=== PATIENT | female | born 1995 | race Caucasian/White ===

== ENCOUNTER 2020-05-31 22:46 | Emergency (ER) | payer OTHER ==
[2020-05-31 22:50] VITALS: TEMP 97.8
[2020-05-31] MEDS ORDERED: SODIUM CHLORIDE 0.9% 1,000 ML IV STA (23:06)
[2020-05-31] MEDS ORDERED: SODIUM CHLORIDE 0.9% 500 ML 500 ML IV STA (23:06)
[2020-05-31 23:31] LABS: Appearance,Urine Cloudy (Clear); Bacteria,Urine Rare /hpf; Bilirubin,Urine Negative (Negative); Blood,Urine Negative (Negative); Color,Urine Yellow; Glucose,Urine (UA) Negative (Negative); Ketones,Urine Negative (Negative); Leukocyte Esterase,Urine Negative (Negative); Mucus,Urine Rare /hpf; Nitrite,Urine Negative (Negative); Protein,Urine Trace (Negative); RBC,Urine 3 /hpf (0-5); Specific Gravity,Urine 1.024 (1.001-1.035); Squamous Epithelial Cell,Urine 5 /hpf (0-4); Urobilinogen,Urine <2.0 mg/dL (<2.0); WBC,Urine 1 /hpf (0-5)
[2020-05-31 23:39] LABS: African American GFR (CKD) >90 (>60 ml/min/1.73 sqM); Albumin 4.2 g/dL (3.5-5.0); Anion Gap 4 mmol/L; Calcium 9.2 mg/dL (8.4-10.2); Carbon Dioxide 25 mmol/L (22-30); Chloride 106 mmol/L (98-107); Glucose 101 mg/dL (74-99); Lipase 76 U/L (23-300); Non-African American GFR(CKD) >90 (>60 ml/min/1.73 sqM); Sodium 135 mmol/L (137-145); Total Bilirubin 1.5 mg/dL (0.2-1.3); Total Protein 7.5 g/dL (6.3-8.2)
--- NOTE | 2020-05-31 23:42 | ED ---
Abdominal Pain HPI - General Chief Complaint: Abdominal Pain Stated Complaint: Abd Pain Time Seen by Provider: 05/31/20 22:56 Source: patient, RN notes reviewed Mode of arrival: ambulatory Limitations: no limitations - History of Present Illness Initial Comments: 25-year-old female presents emergency Department chief complaint abdominal pain. Patient states she's had pain for several days. Patient states that she is concerned about possible obstruction. She states that she's had severe constipation and impaction in the past. Patient states that she's been taking some laxatives states that she's had loose stools but no large amount of stool or any formed stool. Patient states she's having increasing abdominal pain, distention. Patient also has chronic GERD states that she's having some burning in her epigastric region. No fevers chills no chest pain or shortness breath. Patient has no complaints of dysuria no chance . - Related Data Home Medications Medication Instructions Recorded Confirmed Dextroamphetamine/Amphetamine 30 mg PO DAILY 07/24/15 07/24/15 [Adderall] Minastrin PO 07/24/15 07/24/15 Previous Rx's Medication Instructions Recorded Cephalexin [Keflex] 500 mg PO Q6HR #40 cap 07/24/15 Hydrocodone/Acetaminophen [[place] 1 tab PO Q6HR PRN #10 tab 07/24/15 5-325] Ibuprofen [Motrin] 600 mg PO Q8HR PRN #30 tab 07/24/15 Sulfamethox-Tmp 800-160Mg [Bactrim 1 each PO Q12HR #20 tab 07/24/15 Ds] Dicyclomine [Bentyl] 20 mg PO TID #30 tablet 06/01/20 Omeprazole [PriLOSEC] 20 mg PO AC-BRKFST #14 cap 06/01/20 Allergies Allergy/AdvReac Type Severity Reaction Status Date / Time No Known Allergies Allergy Verified 05/31/20 22:50 Review of Systems ROS Statement: Those systems with pertinent positive or pertinent negative responses have been documented in the HPI. ROS Other: All systems not noted in ROS Statement are negative. Past Medical History Past Medical History: Asthma History of Any Multi-Drug Resistant Organisms: None Reported Additional Past Surgical History / Comment(s): wisdom teeth Past Psychological History: No Psychological Hx Reported Smoking Status: Never smoker Past Alcohol Use History: Occasional Past Drug Use History: None Reported General Exam Limitations: no limitations General appearance: alert, in no apparent distress Head exam: Present: atraumatic, normocephalic, normal inspection Eye exam: Present: normal appearance, PERRL, EOMI. Absent: scleral icterus, conjunctival injection, periorbital swelling ENT exam: Present: normal exam, normal oropharynx, mucous membranes moist Neck exam: Present: normal inspection, full ROM. Absent: tenderness, meningismus, lymphadenopathy Respiratory exam: Present: normal lung sounds bilaterally. Absent: respiratory distress, wheezes, rales, rhonchi, stridor Cardiovascular Exam: Present: regular rate (Heart rate was 112 on triage though regular rate on exam), normal rhythm, normal heart sounds. Absent: systolic murmur, diastolic murmur, rubs, gallop, clicks GI/Abdominal exam: Present: soft, tenderness (Diffuse greatest on the left and epigastric region), normal bowel sounds. Absent: distended, guarding, rebound, rigid Back exam: Absent: CVA tenderness (R), CVA tenderness (L) Neurological exam: Present: alert, oriented X3 Course Vital Signs 05/31/20 22:48 Temperature 97.8 F Pulse Rate 112 H Respiratory 22 Rate Blood Pressure 133/85 O2 Sat by Pulse 99 Oximetry Medical Decision Making - Medical Decision Making Labs x-ray and CT reviewed , labs There is noted diarrhea within the large bowel. Patient has taken some recent laxatives. Patient does have underlying gastritis and possible IBS. Patient will follow-up with GI and return for any worsening change in symptoms. - Lab Data Result diagrams: 05/31/20 23:16 05/31/20 23:16 Lab Results 05/31/20 05/31/20 05/31/20 Range/Units 23:16 23:16 23:16 WBC 7.9 (3.8-10.6) k/uL RBC 4.53 (3.80-5.40) m/uL Hgb 13.1 (11.4-16.0) gm/dL Hct 39.5 (34.0-46.0) % MCV 87.3 (80.0-100.0) fL MCH 29.0 (25.0-35.0) pg MCHC 33.2 (31.0-37.0) g/dL RDW 12.2 (11.5-15.5) % Plt Count 205 (150-450) k/uL MPV 9.7 Neutrophils % 86 % Lymphocytes % 8 % Monocytes % 3 % Eosinophils % 2 % Basophils % 0 % Neutrophils # 6.8 (1.3-7.7) k/uL Lymphocytes # 0.7 L (1.0-4.8) k/uL Monocytes # 0.3 (0-1.0) k/uL Eosinophils # 0.1 (0-0.7) k/uL Basophils # 0.0 (0-0.2) k/uL Sodium (137-145) mmol/L Potassium (3.5-5.1) mmol/L Chloride (98-107) mmol/L Carbon Dioxide (22-30) mmol/L Anion Gap mmol/L BUN (7-17) mg/dL Creatinine (0.52-1.04) mg/dL Est GFR (CKD-EPI)AfAm (>60 ml/min/1.73 sqM) Est GFR (CKD-EPI)NonAf (>60 ml/min/1.73 sqM) Glucose (74-99) mg/dL Calcium (8.4-10.2) mg/dL Total Bilirubin (0.2-1.3) mg/dL AST (14-36) U/L ALT (4-34) U/L Alkaline Phosphatase (38-126) U/L Total Protein (6.3-8.2) g/dL Albumin (3.5-5.0) g/dL Lipase (23-300) U/L Urine Color Yellow Urine Appearance Cloudy H (Clear) Urine pH 8.0 (5.0-8.0) Ur Specific [place] 1.024 (1.001-1.035) Urine Protein Trace H (Negative) Urine Glucose (UA) Negative (Negative) Urine Ketones Negative (Negative) Urine Blood Negative (Negative) Urine Nitrite Negative (Negative) Urine Bilirubin Negative (Negative) Urine Urobilinogen <2.0 (<2.0) mg/dL Ur Leukocyte Esterase Negative (Negative) Urine RBC 3 (0-5) /hpf Urine WBC 1 (0-5) /hpf Ur Squamous Epith Cells 5 H (0-4) /hpf Urine Bacteria Rare H (None) /hpf Urine Mucus Rare H (None) /hpf Urine HCG, Qual Not Detected (Not Detectd) 05/31/20 Range/Units 23:16 WBC (3.8-10.6) k/uL RBC (3.80-5.40) m/uL Hgb (11.4-16.0) gm/dL Hct (34.0-46.0) % MCV (80.0-100.0) fL MCH (25.0-35.0) pg MCHC (31.0-37.0) g/dL RDW (11.5-15.5) % Plt Count (150-450) k/uL MPV Neutrophils % % Lymphocytes % % Monocytes % % Eosinophils % % Basophils % % Neutrophils # (1.3-7.7) k/uL Lymphocytes # (1.0-4.8) k/uL Monocytes # (0-1.0) k/uL Eosinophils # (0-0.7) k/uL Basophils # (0-0.2) k/uL Sodium 135 L (137-145) mmol/L Potassium 4.9 (3.5-5.1) mmol/L Chloride 106 (98-107) mmol/L Carbon Dioxide 25 (22-30) mmol/L Anion Gap 4 mmol/L BUN 10 (7-17) mg/dL Creatinine 0.57 (0.52-1.04) mg/dL Est GFR (CKD-EPI)AfAm >90 (>60 ml/min/1.73 sqM) Est GFR (CKD-EPI)NonAf >90 (>60 ml/min/1.73 sqM) Glucose 101 H (74-99) mg/dL Calcium 9.2 (8.4-10.2) mg/dL Total Bilirubin 1.5 H (0.2-1.3) mg/dL AST 45 H (14-36) U/L ALT 24 (4-34) U/L Alkaline Phosphatase 48 (38-126) U/L Total Protein 7.5 (6.3-8.2) g/dL Albumin 4.2 (3.5-5.0) g/dL Lipase 76 (23-300) U/L Urine Color Urine Appearance (Clear) Urine pH (5.0-8.0) Ur Specific [place] (1.001-1.035) Urine Protein (Negative) Urine Glucose (UA) (Negative) Urine Ketones (Negative) Urine Blood (Negative) Urine Nitrite (Negative) Urine Bilirubin (Negative) Urine Urobilinogen (<2.0) mg/dL Ur Leukocyte Esterase (Negative) Urine RBC (0-5) /hpf Urine WBC (0-5) /hpf Ur Squamous Epith Cells (0-4) /hpf Urine Bacteria (None) /hpf Urine Mucus (None) /hpf Urine HCG, Qual (Not Detectd) Disposition Clinical Impression: Abdominal pain, Gastritis, IBS (irritable bowel syndrome) Disposition: HOME SELF-CARE Condition: Stable Instructions (If sedation given, give patient instructions): Abdominal Pain (ED) Additional Instructions: Please return to the Emergency Department if symptoms worsen or any other conc erns. Prescriptions: Dicyclomine [Bentyl] 20 mg PO TID #30 tablet Omeprazole [PriLOSEC] 20 mg PO AC-BRKFST #14 cap Is patient prescribed a controlled substance at d/c from ED?: No Referrals: Porter Fu MD [Primary Care Provider] - 1-2 days Cornelio Headley MD [STAFF PHYSICIAN] - 1-2 days Time of Disposition: 00:35
[2020-05-31 23:43] LABS: ALT 24 U/L (4-34); AST 45 U/L (14-36); Alkaline Phosphatase 48 U/L (38-126); Blood Urea Nitrogen 10 mg/dL (7-17); Potassium 4.9 mmol/L (3.5-5.1)
--- NOTE | 2020-05-31 23:50 | XR ---
EXAMINATION TYPE: XR KUB DATE OF EXAM: 05/31/2020 COMPARISON: NONE HISTORY: Abdominal pain TECHNIQUE: 2 views upright FINDINGS: There is no sign of intestinal obstruction or pneumoperitoneum. Fecal pattern is normal. Yissel ng bases are clear. There are no pathologic calcifications. IMPRESSION: Nonacute abdomen.
[2020-05-31] MEDS ORDERED: KETOROLAC 15 MG/ML 1 ML VIAL IVP STA (23:52)
[2020-05-31] MEDS ORDERED: FAMOTIDINE 20 MG/2 ML VIAL IV STA (23:53)
[2020-05-31] MEDS ORDERED: ONDANSETRON 4 MG/2 ML VIAL IVP STA (23:53)
[2020-06-01 00:03] LABS: Basophils % (A) 0 %; Eosinophils # (A) 0.1 k/uL (0-0.7); Eosinophils % (A) 2 %; HCT 39.5 % (34.0-46.0); HGB 13.1 gm/dL (11.4-16.0); Lymphocytes # (A) 0.7 k/uL (1.0-4.8); Lymphocytes % (A) 8 %; MCHC 33.2 g/dL (31.0-37.0); MCV 87.3 fL (80.0-100.0); Mean Platelet Volume 9.7; Monocytes # (A) 0.3 k/uL (0-1.0); Monocytes % (A) 3 %; Neutrophils # (A) 6.8 k/uL (1.3-7.7); Neutrophils % (A) 86 %; Platelet Count 205 k/uL (150-450); RBC 4.53 m/uL (3.80-5.40); RDW 12.2 % (11.5-15.5); WBC 7.9 k/uL (3.8-10.6)
--- NOTE | 2020-06-01 00:23 | CT ---
EXAMINATION TYPE: CT abdomen pelvis w con DATE OF EXAM: 06/01/2020 COMPARISON: None HISTORY: Upper Abd Pain CT DLP: 752.90 mGycm Automated exposure control for dose reduction was used. CONTRAST: Performed with IV Contrast, patient injected with 100 mL of Isovue 300. The lung bases are clear of consolidation. There is mild subsegmental atelectasis right lung base. He art size is normal. There is no pericardial effusion. There is mild fatty infiltration of the liver. Spleen is intact. Stomach is intact. There is no pancr eatic mass. Gallbladder appears normal. The bile ducts are not dilated. There is no adrenal mass. Kidneys show satisfactory contrast opacification. There is no hydronephrosi s. Ureters are not dilated. Bladder distends smoothly. Uterus is anteverted. There is no inguinal her adina. There is no free fluid in the pelvis. Small bowel pattern is fairly normal. There is no sign of thickened appendix. Appendix is not well seen. The delayed images show normal renal excretion. The lumbar vertebra have normal alignment. The posterior elements are intact. Disc spaces are fairly normal. There is no lumbar compression fracture. Bony pelvis is intact. Hip joints appear normal. IMPRESSION: Appendix not seen. No sign of thickened appendix. There is a large bowel fluid down to the sigmoid co qiana that could relate to diarrhea.
[2020-06-01 00:47] VITALS: BP 119/73; PULSE 98; RESP 18
== END 2020-06-01 00:47 | disposition home or self-care (01) ==
LOC: EC 22:46
DX: K29.70 Gastritis, unspecified, without bleeding (principal); K58.1 Irritable bowel syndrome with constipation
CPT/HCPCS: 99284; 96374; 96375 ×2; 96361; 36415; 80053; 83690; 85025; 81001; 81025; 74018; 74177; J2405; J1885; Q9967

== ENCOUNTER 2020-06-03 01:49 | Emergency (ER) | payer OTHER ==
--- NOTE | 2020-06-03 02:45 | ED ---
Abdominal Pain HPI - General Chief Complaint: Abdominal Pain Stated Complaint: Abd Pain - revisit Time Seen by Provider: 06/03/20 02:28 Source: patient Mode of arrival: ambulatory Limitations: no limitations - History of Present Illness MD Complaint: abdominal pain Onset/Timin -: days(s) Location: diffuse Radiation: none Migration to: periumbilical Severity: moderate Quality: cramping Consistency: intermittent Improves With: bowel movement Worsens With: nothing Associated Symptoms: nausea, vomiting, diarrhea - Related Data LMP (females 10-50): last week Home Medications Medication Instructions Recorded Confirmed Dextroamphetamine/Amphetamine 30 mg PO DAILY 07/24/15 07/24/15 [Adderall] Minastrin PO 07/24/15 07/24/15 Previous Rx's Medication Instructions Recorded Cephalexin [Keflex] 500 mg PO Q6HR #40 cap 07/24/15 Hydrocodone/Acetaminophen [[place] 1 tab PO Q6HR PRN #10 tab 07/24/15 5-325] Ibuprofen [Motrin] 600 mg PO Q8HR PRN #30 tab 07/24/15 Sulfamethox-Tmp 800-160Mg [Bactrim 1 each PO Q12HR #20 tab 07/24/15 Ds] Dicyclomine [Bentyl] 20 mg PO TID #30 tablet 06/01/20 Omeprazole [PriLOSEC] 20 mg PO AC-BRKFST #14 cap 06/01/20 Ciprofloxacin HCl [Cipro] 500 mg PO Q12HR 1 Days #6 tab 06/03/20 Ondansetron Odt [Zofran ODT] 4 mg PO Q8HR PRN #10 tab 06/03/20 Allergies Allergy/AdvReac Type Severity Reaction Status Date / Time No Known Allergies Allergy Verified 06/03/20 01:54 Review of Systems ROS Statement: Those systems with pertinent positive or pertinent negative responses have been documented in the HPI. ROS Other: All systems not noted in ROS Statement are negative. Constitutional: Denies: fever, chills Respiratory: Denies: cough, dyspnea Cardiovascular: Denies: chest pain, palpitations Gastrointestinal: Reports: abdominal pain, nausea, vomiting, diarrhea. Denies: constipation, melena, hematochezia Genitourinary: Denies: dysuria, hematuria Musculoskeletal: Denies: back pain Skin: Denies: rash Neurological: Denies: headache, weakness, numbness Past Medical History Past Medical History: Asthma Additional Past Medical History / Comment(s): constipation History of Any Multi-Drug Resistant Organisms: None Reported Additional Past Surgical History / Comment(s): wisdom teeth Past Psychological History: No Psychological Hx Reported Smoking Status: Never smoker Past Alcohol Use History: Occasional Past Drug Use History: None Reported General Exam Limitations: no limitations General appearance: alert, in no apparent distress Head exam: Present: atraumatic, normocephalic Eye exam: Present: normal appearance. Absent: scleral icterus, conjunctival injection ENT exam: Present: normal oropharynx, mucous membranes moist Respiratory exam: Present: normal lung sounds bilaterally. Absent: respiratory distress, wheezes, rales, rhonchi, stridor Cardiovascular Exam: Present: regular rate, normal rhythm, normal heart sounds. Absent: systolic murmur, diastolic murmur, rubs, gallop GI/Abdominal exam: Present: soft, normal bowel sounds. Absent: distended, tenderness, guarding, rebound, rigid, mass, pulsatile mass, hernia Extremities exam: Present: normal inspection, normal capillary refill. Absent: pedal edema, calf tenderness Back exam: Present: normal inspection. Absent: CVA tenderness (R), CVA tenderness (L) Neurological exam: Present: alert Skin exam: Present: warm, dry, intact, normal color. Absent: rash Course Vital Signs 06/03/20 06/03/20 06/03/20 01:50 03:47 05:00 Temperature 98.8 F 98.6 F Pulse Rate 92 96 92 Respiratory 22 18 16 Rate Blood Pressure 121/83 123/82 124/79 O2 Sat by Pulse 99 99 100 Oximetry Medical Decision Making - Lab Data Result diagrams: 06/03/20 02:52 06/03/20 02:52 Lab Results 06/03/20 06/03/20 06/03/20 Range/Units 02:52 02:52 02:52 WBC 7.3 (3.8-10.6) k/uL RBC 4.74 (3.80-5.40) m/uL Hgb 13.4 (11.4-16.0) gm/dL Hct 40.4 (34.0-46.0) % MCV 85.4 (80.0-100.0) fL MCH 28.3 (25.0-35.0) pg MCHC 33.1 (31.0-37.0) g/dL RDW 12.2 (11.5-15.5) % Plt Count 270 (150-450) k/uL MPV 6.7 Neutrophils % 82 % Lymphocytes % 10 % Monocytes % 4 % Eosinophils % 2 % Basophils % 0 % Neutrophils # 6.0 (1.3-7.7) k/uL Lymphocytes # 0.7 L (1.0-4.8) k/uL Monocytes # 0.3 (0-1.0) k/uL Eosinophils # 0.2 (0-0.7) k/uL Basophils # 0.0 (0-0.2) k/uL Sodium (137-145) mmol/L Potassium (3.5-5.1) mmol/L Chloride (98-107) mmol/L Carbon Dioxide (22-30) mmol/L Anion Gap mmol/L BUN (7-17) mg/dL Creatinine (0.52-1.04) mg/dL Est GFR (CKD-EPI)AfAm (>60 ml/min/1.73 sqM) Est GFR (CKD-EPI)NonAf (>60 ml/min/1.73 sqM) Glucose (74-99) mg/dL Calcium (8.4-10.2) mg/dL Total Bilirubin (0.2-1.3) mg/dL AST (14-36) U/L ALT (4-34) U/L Alkaline Phosphatase (38-126) U/L C-Reactive Protein (<10.0) mg/L Total Protein (6.3-8.2) g/dL Albumin (3.5-5.0) g/dL Amylase (30-110) U/L Lipase (23-300) U/L Urine Color Yellow Urine Appearance Clear (Clear) Urine pH 6.0 (5.0-8.0) Ur Specific [place] 1.032 (1.001-1.035) Urine Protein 1+ H (Negative) Urine Glucose (UA) Negative (Negative) Urine Ketones Trace H (Negative) Urine Blood Small H (Negative) Urine Nitrite Negative (Negative) Urine Bilirubin 1+ H (Negative) Urine Urobilinogen <2.0 (<2.0) mg/dL Ur Leukocyte Esterase Negative (Negative) Urine RBC 8 H (0-5) /hpf Urine WBC 2 (0-5) /hpf Ur Squamous Epith Cells 3 (0-4) /hpf Urine Bacteria Occasional H (None) /hpf Urine Mucus Moderate H (None) /hpf Urine HCG, Qual Not Detected (Not Detectd) C. difficile (EIA) Intrp (Negative) 06/03/20 06/03/20 Range/Units 02:52 04:11 WBC (3.8-10.6) k/uL RBC (3.80-5.40) m/uL Hgb (11.4-16.0) gm/dL Hct (34.0-46.0) % MCV (80.0-100.0) fL MCH (25.0-35.0) pg MCHC (31.0-37.0) g/dL RDW (11.5-15.5) % Plt Count (150-450) k/uL MPV Neutrophils % % Lymphocytes % % Monocytes % % Eosinophils % % Basophils % % Neutrophils # (1.3-7.7) k/uL Lymphocytes # (1.0-4.8) k/uL Monocytes # (0-1.0) k/uL Eosinophils # (0-0.7) k/uL Basophils # (0-0.2) k/uL Sodium 132 L (137-145) mmol/L Potassium 3.2 L (3.5-5.1) mmol/L Chloride 103 (98-107) mmol/L Carbon Dioxide 23 (22-30) mmol/L Anion Gap 6 mmol/L BUN 9 (7-17) mg/dL Creatinine 0.62 (0.52-1.04) mg/dL Est GFR (CKD-EPI)AfAm >90 (>60 ml/min/1.73 sqM) Est GFR (CKD-EPI)NonAf >90 (>60 ml/min/1.73 sqM) Glucose 107 H (74-99) mg/dL Calcium 8.8 (8.4-10.2) mg/dL Total Bilirubin 0.7 (0.2-1.3) mg/dL AST 46 H (14-36) U/L ALT 26 (4-34) U/L Alkaline Phosphatase 65 (38-126) U/L C-Reactive Protein 39.4 H (<10.0) mg/L Total Protein 6.7 (6.3-8.2) g/dL Albumin 3.6 (3.5-5.0) g/dL Amylase 47 (30-110) U/L Lipase 135 (23-300) U/L Urine Color Urine Appearance (Clear) Urine pH (5.0-8.0) Ur Specific [place] (1.001-1.035) Urine Protein (Negative) Urine Glucose (UA) (Negative) Urine Ketones (Negative) Urine Blood (Negative) Urine Nitrite (Negative) Urine Bilirubin (Negative) Urine Urobilinogen (<2.0) mg/dL Ur Leukocyte Esterase (Negative) Urine RBC (0-5) /hpf Urine WBC (0-5) /hpf Ur Squamous Epith Cells (0-4) /hpf Urine Bacteria (None) /hpf Urine Mucus (None) /hpf Urine HCG, Qual (Not Detectd) C. difficile (EIA) Intrp Negative (Negative) Disposition Clinical Impression: Gastroenteritis Disposition: HOME SELF-CARE Condition: Good Prescriptions: Ciprofloxacin HCl [Cipro] 500 mg PO Q12HR 1 Days #6 tab Ondansetron Odt [Zofran ODT] 4 mg PO Q8HR PRN #10 tab PRN Reason: Nausea Is patient prescribed a controlled substance at d/c from ED?: No Referrals: Porter Fu MD [Primary Care Provider] - 1-2 days Cornelio Headley MD [STAFF PHYSICIAN] - 1-2 days
[2020-06-03 03:02] LABS: Basophils % (A) 0 %; Eosinophils # (A) 0.2 k/uL (0-0.7); Eosinophils % (A) 2 %; HCT 40.4 % (34.0-46.0); HGB 13.4 gm/dL (11.4-16.0); Lymphocytes # (A) 0.7 k/uL (1.0-4.8); Lymphocytes % (A) 10 %; MCH 28.3 pg (25.0-35.0); MCHC 33.1 g/dL (31.0-37.0); MCV 85.4 fL (80.0-100.0); Mean Platelet Volume 6.7; Monocytes # (A) 0.3 k/uL (0-1.0); Monocytes % (A) 4 %; Neutrophils % (A) 82 %; Platelet Count 270 k/uL (150-450); RBC 4.74 m/uL (3.80-5.40); RDW 12.2 % (11.5-15.5); WBC 7.3 k/uL (3.8-10.6)
--- NOTE | 2020-06-03 03:07 | XR ---
EXAM: XR Abdomen, 1 View CLINICAL HISTORY: ITS.REASON XR Reason: abdominal pain TECHNIQUE: Frontal supine view of the abdomen/pelvis. COMPARISON: 05/31/2020 FINDINGS: Gastrointestinal tract: Unremarkable. No dilation. Bones/joints: No acute fracture. No dislocation. IMPRESSION: No acute findings.
[2020-06-03 03:11] LABS: Appearance,Urine Clear (Clear); Bacteria,Urine Occasional /hpf; Bilirubin,Urine 1+ (Negative); Blood,Urine Small (Negative); Color,Urine Yellow; Glucose,Urine (UA) Negative (Negative); Ketones,Urine Trace (Negative); Leukocyte Esterase,Urine Negative (Negative); Mucus,Urine Moderate /hpf; Nitrite,Urine Negative (Negative); Protein,Urine 1+ (Negative); RBC,Urine 8 /hpf (0-5); Specific Gravity,Urine 1.032 (1.001-1.035); Squamous Epithelial Cell,Urine 3 /hpf (0-4); Urobilinogen,Urine <2.0 mg/dL (<2.0); WBC,Urine 2 /hpf (0-5)
[2020-06-03 03:12] LABS: ALT 26 U/L (4-34); AST 46 U/L (14-36); African American GFR (CKD) >90 (>60 ml/min/1.73 sqM); Albumin 3.6 g/dL (3.5-5.0); Alkaline Phosphatase 65 U/L (38-126); Amylase 47 U/L (30-110); Anion Gap 6 mmol/L; Blood Urea Nitrogen 9 mg/dL (7-17); C Reactive Protein 39.4 mg/L (<10.0); Calcium 8.8 mg/dL (8.4-10.2); Carbon Dioxide 23 mmol/L (22-30); Chloride 103 mmol/L (98-107); Glucose 107 mg/dL (74-99); Lipase 135 U/L (23-300); Non-African American GFR(CKD) >90 (>60 ml/min/1.73 sqM); Potassium 3.2 mmol/L (3.5-5.1); Sodium 132 mmol/L (137-145); Total Bilirubin 0.7 mg/dL (0.2-1.3); Total Protein 6.7 g/dL (6.3-8.2)
[2020-06-03 05:54] VITALS: TEMP 98.6
[2020-06-03 06:26] VITALS: BP 124/73; PULSE 88; RESP 17
== END 2020-06-03 06:24 | disposition home or self-care (01) ==
LOC: EC 01:49
DX: K52.9 Noninfective gastroenteritis and colitis, unspecified (principal)
CPT/HCPCS: 36415; 74018; 80053; 81001; 81025; 82150; 83690; 85025; 86140; 87045; 87046; 87324; 99284

== ENCOUNTER → 2020-10-10 | Outpatient (CLI) | payer OTHER ==
[2020-10-10 14:47] LABS: Basophils # (A) 0.03 X 10*3/uL (0.00-0.10); Basophils % (A) 0.6 %; Eosinophils # (A) 0.08 X 10*3/uL (0.04-0.35); Eosinophils % (A) 1.5 %; HCT 39.1 % (37.2-46.3); HGB 13.1 g/dL (12.0-15.0); Lymphocytes # (A) 1.13 X 10*3/uL (0.90-5.00); Lymphocytes % (A) 20.9 %; MCH 29.6 pg (27.0-32.0); MCHC 33.5 g/dL (32.0-37.0); MCV 88.5 fL (80.0-97.0); Mean Platelet Volume 9.5 fL (9.5-12.2); Monocytes # (A) 0.21 X 10*3/uL (0.20-1.00); Monocytes % (A) 3.9 %; Neutrophils # (A) 3.94 X 10*3/uL (1.80-7.70); Neutrophils % (A) 72.7 %; Platelet Count 296 X 10*3/uL (140-440); RBC 4.42 X 10*6/uL (4.10-5.20); WBC 5.41 X 10*3/uL (4.50-10.00)
[2020-10-10 15:03] LABS: African American GFR (CKD) 137.6 (60.0-200.0); Albumin 4.6 g/dL (3.80-4.90); Albumin/Globulin Ratio 1.77 (1.60-3.17); Anion Gap 8.7 mmol/L (4.00-12.00); BUN/Creat Ratio 11.43 Ratio (12.00-20.00); Calcium 9.7 mg/dL (8.7-10.3); Carbon Dioxide 23.3 mmol/L (21.6-31.8); Globulin 2.6 g/dL (1.6-3.3); Non-African American GFR(CKD) 118.7 (60.0-200.0); Total Bilirubin 0.9 mg/dL (0.3-1.2); Total Protein 7.2 g/dL (6.2-8.2)
[2020-10-10 18:43] LABS: Gliadin AB IgA, Deaminated NEGATIVE (NEGATIVE); Gliadin AB IgA, Unit 1.7 U/mL; Gliadin AB IgG, Deaminated NEGATIVE (NEGATIVE)
== END | disposition home or self-care (01) ==
LOC: LABWHC1 10:41
PROVIDERS: ATTEND Nurse Practitioner
DX: K52.9 Noninfective gastroenteritis and colitis, unspecified (principal)
CPT/HCPCS: 36415; 80053; 83516; 85025

== ENCOUNTER 2020-11-07 07:51 | Day surgery (SDC) | payer OTHER ==
[2020-11-02 11:49] VITALS: BMI 25.0
[~2020-11-07 07:51] MED LIST: LACTATED RINGERS 1,000 ML IV SCH
[2020-11-07 08:17] VITALS: TEMP 76
[2020-11-07] MEDS ORDERED: LIDOCAINE 1% (10MG/ML) FOR IV START INTRADERMA ONE (08:25)
[2020-11-07] MEDS ORDERED: LACTATED RINGERS 1,000 ML IV ONE (08:25)
[2020-11-07] MEDS ORDERED: PROPOFOL 10 MG/ML 20 ML VIAL IV ONE (09:01)
--- NOTE | 2020-11-07 09:26 | P.PCN ---
Date of Procedure: 11/07/20 Description of Procedure: BRIEF HISTORY: Patient is a 25-year-old female presenting for outpatient colonoscopy for evaluation of colitis. Patient was seen in the GI clinic reporting over 10 bowel movements daily with associated abdominal cramping and pain. No signs or symptoms of GI bleeding. Stool culture previously was negative and 06/09. She denies any family history of Crohn's disease, ulcerative colitis or colon cancer. PROCEDURE PERFORMED: Colonoscopy with biopsy. PREOPERATIVE DIAGNOSIS: Colitis, diarrhea, no prior colonoscopy. ESTIMATED BLOOD LOSS: Minimal. IV sedation per Anesthesia. PROCEDURE: After informed consent was obtained, the patient, was brought into the endoscopy unit. IV sedation was administered by Anesthesia under continuous monitoring. Digital rectal examination was normal. Initially the Olympus CF-190 flexible video colonoscope was then inserted in the rectum, gradually advanced into the cecum without any difficulty. Careful examination was performed as the scope was gradually being withdrawn. Ileocecal valve and the appendiceal orifice were visualized and appeared normal. Prep was excellent. Mucosa of the cecum, ascending colon, transverse colon, descending colon, sigmoid colon, and rectum appeared normal with biopsies taken of the right and left colon. The terminal ileum was intubated and appeared normal with biopsies taken. Retroflexion was performed in the rectum and no lesions were seen, with low-grade internal he morrhoids. The patient tolerated the procedure well. IMPRESSION: Normal-appearing colon from rectum to cecum and normal-appearing terminal ileum with random biopsies taken of the terminal ileum, right colon and left colon. Internal hemorrhoids. RECOMMENDATIONS: Findings of this examination were discussed with the patient and her family. Okay to resume diet. Okay to resume medications. Await pathology from biopsies. Patient should follow-up in the GI clinic in the next 1-2 weeks for results of biopsies and further management.
[2020-11-07 09:52] VITALS: BP 109/64; PULSE 64; RESP 20
== END 2020-11-07 10:20 | disposition home or self-care (01) ==
LOC: ORWHC2ENDO 07:51
PROVIDERS: ATTEND Internal Medicine
DX: K52.9 Noninfective gastroenteritis and colitis, unspecified (principal); K64.8 Other hemorrhoids; R19.7 Diarrhea, unspecified; Z98.890 Other specified postprocedural states; J45.909 Unspecified asthma, uncomplicated; Z79.899 Other long term (current) drug therapy
CPT/HCPCS: 81025; 88305; 45380; J2704

== ENCOUNTER 2024-02-17 21:25 | Observation (INO) | payer BC ==
[2024-02-17] MEDS: IPRATROPIUM-ALBUTEROL 3 ML NEB INHALATION STA ×3 (21:43→23:27)
[2024-02-17] MEDS: methylPREDNISolone SOD SUCCI 125 MG/2 ML VIAL IM ONE (22:08)
[2024-02-17] MEDS: SODIUM CHLORIDE 0.9% 1,000 ML IV STA (22:09)
[2024-02-17 22:44] LABS: Basophils % (A) 0 %; Eosinophils # (A) 0.1 k/uL (0-0.7); Eosinophils % (A) 0 %; HCT 40.4 % (34.0-46.0); HGB 13.4 gm/dL (11.4-16.0); Lymphocytes # (A) 0.5 k/uL (1.0-4.8); Lymphocytes % (A) 3 %; MCH 29.5 pg (25.0-35.0); MCHC 33.1 g/dL (31.0-37.0); MCV 89.1 fL (80.0-100.0); Monocytes # (A) 0.2 k/uL (0-1.0); Monocytes % (A) 1 %; Neutrophils # (A) 16.3 k/uL (1.3-7.7); Neutrophils % (A) 95 %; Platelet Count 336 k/uL (150-450); RBC 4.54 m/uL (3.80-5.40); RDW 11.8 % (11.5-15.5); WBC 17.2 k/uL (3.8-10.6)
[2024-02-17 22:51] LABS: INR 0.9 (<1.2); Partial Thromboplastin Time 23.2 sec (22.0-30.0); Prothrombin Time 10.2 sec (10.0-12.5)
[2024-02-17 23:01] LABS: ALT 18 U/L (4-34); AST 23 U/L (14-36); African American GFR (CKD) >90 (>60 ml/min/1.73 sqM); Albumin 4.2 g/dL (3.5-5.0); Alkaline Phosphatase 81 U/L (38-126); Anion Gap 9 mmol/L; Blood Urea Nitrogen 8 mg/dL (7-17); Calcium 9.6 mg/dL (8.4-10.2); Carbon Dioxide 19 mmol/L (22-30); Chloride 107 mmol/L (98-107); Glucose 142 mg/dL (74-99); Non-African American GFR(CKD) >90 (>60 ml/min/1.73 sqM); Sodium 135 mmol/L (137-145); Total Bilirubin 0.9 mg/dL (0.2-1.3); Total Protein 7.2 g/dL (6.3-8.2)
[2024-02-17] MEDS: methylPREDNISolone SOD SUCCI 125 MG/2 ML VIAL IV ONE (23:14)
[2024-02-17] MEDS: ACETAMINOPHEN TAB 325 MG TAB PO STA (23:14)
[2024-02-17] MEDS: IBUPROFEN 600 MG TAB PO STA (23:15)
--- NOTE | 2024-02-17 23:44 | XR ---
EXAM: XR Chest, 2 Views CLINICAL HISTORY: ITS.REASON XR Reason: SOB TECHNIQUE: Frontal and lateral views of the chest. COMPARISON: No relevant prior studies available. FINDINGS: Lungs: Unremarkable. No consolidation. Pleural space: Unremarkable. No pneumothorax. Heart: Unremarkable. No cardiomegaly. Mediastinum: Unremarkable. Normal mediastinal contour. Bones/joints: Unremarkable. No acute fracture. IMPRESSION: Normal chest x-rays.
--- NOTE | 2024-02-18 00:26 | CT ---
EXAM: CT Angiography Chest With Intravenous Contrast CLINICAL HISTORY: ITS.REASON CT Reason: SOB TECHNIQUE: Axial computed tomographic angiography images of the chest with intravenous contrast. CTDI is 23.89 mGy and DLP is 271.8 mGy-cm. This CT exam was performed using one or more of the following dose reduction techniques: automated exposure control, adjustment of the mA and/or kV according to patient size, and/or use of iterative reconstruction technique. MIP reconstructed images were created and reviewed. COMPARISON: No relevant prior studies available. FINDINGS: Pulmonary arteries: Unremarkable. No pulmonary embolism. Aorta: No acute findings. No thoracic aortic aneurysm. Lungs: Unremarkable. No mass. No consolidation. Pleural space: Unremarkable. No significant effusion. No pneumothorax. Heart: Unremarkable. No cardiomegaly. No significant pericardial effusion. No evidence of RV dysfunction. Mediastinum: Small hiatal hernia. Bones/joints: No acute fracture. No dislocation. Soft tissues: Unremarkable. Lymph nodes: Unremarkable. No enlarged lymph nodes. Liver: Hepatic steatosis. IMPRESSION: No acute pulmonary embolism.
--- NOTE | 2024-02-18 00:51 | ED ---
General Adult HPI - General Chief complaint: Shortness of Breath Stated complaint: ELSA Time Seen by Provider: 02/17/24 21:33 Source: patient Mode of arrival: wheelchair Limitations: no limitations - History of Present Illness Initial comments: 29-year-old female with history of asthma presenting with chief complaint of shortness of breath. Patient states that yesterday she had a mild cough and today she has had severe shortness of breath. She was using nebulizers all day today at home without relief. She went to urgent care earlier today. She teste d negative for COVID and was given Decadron and DuoNeb. States that she felt fine for less than an hour before she started to have severe chest tightness again. This prompted her to come to the ER. She does not smoke or vape, states that she is around her boyfriend who does vape. Outside of the mild cough that developed yesterday she has not had any other symptoms of illness. No lower extremity swelling. Patient does take oral contraceptives. - Related Data Home Medications Medication Instructions Recorded Confirmed Dextroamphetamine/Amphetamine 30 mg PO DAILY 07/24/15 11/07/20 [Adderall] Brad 1 tab PO DAILY 11/02/20 11/07/20 Allergies Allergy/AdvReac Type Severity Reaction Status Date / Time No Known Allergies Allergy Verified 02/17/24 21:29 Review of Systems ROS Statement: Those systems with pertinent positive or pertinent negative responses have been documented in the HPI. ROS Other: All systems not noted in ROS Statement are negative. Past Medical History Past Medical History: Asthma Additional Past Medical History / Comment(s): constipation History of Any Multi-Drug Resistant Organisms: None Reported Additional Past Surgical History / Comment(s): wisdom teeth Past Psychological History: No Psychological Hx Reported Smoking Status: Never smoker Past Alcohol Use History: None Reported Past Drug Use History: None Reported General Exam Limitations: no limitations General appearance: alert, in no apparent distress Head exam: Present: atraumatic, normocephalic, normal inspection Eye exam: Present: normal appearance, EOMI Neck exam: Present: normal inspection. Absent: meningismus Respiratory exam: Present: wheezes. Absent: respiratory distress, rales, rhonchi, stridor Cardiovascular Exam: Present: normal rhythm, tachycardia, normal heart sounds. Absent: systolic murmur, diastolic murmur, rubs, gallop, clicks Extremities exam: Absent: pedal edema Neurological exam: Present: alert, oriented X3 Psychiatric exam: Present: normal affect, normal mood Skin exam: Present: normal color Course Vital Signs 02/17/24 02/17/24 02/17/24 21:26 21:44 22:12 Temperature 99 F Pulse Rate 122 H 117 H 105 H Respiratory 40 H Rate Blood Pressure 139/84 O2 Sat by Pulse 97 Oximetry 02/17/24 02/17/24 23:27 23:40 Temperature Pulse Rate 109 H 104 H Respiratory Rate Blood Pressure O2 Sat by Pulse Oximetry Procedures - [place] Protocol (Time Out) Nurse: Nakia Ruiz Medical Decision Making - Medical Decision Making Was pt. sent in by a medical professional or institution (, PA, PUBLIC HEALTH STAFF NURSE, urgent care, hospital, or [facility]...) When possible be specific @ -No Did you speak to anyone other than the patient for history (EMS, parent, family, police, friend...)? What history was obtained from this source @ -No Did you review nursing and triage notes (agree or disagree)? Why? @ -I reviewed and agree with nursing and triage notes Were old charts reviewed (outside hosp., previous admission, EMS record, old EKG, old radiological studies, urgent care reports/EKG's, [facility] records)? Report findings @ -No old charts were reviewed Differential Diagnosis (chest pain, altered mental status, abdominal pain women, abdominal pain men, vaginal bleeding, weakness, fever, dyspnea, syncope, headache, dizziness, GI bleed, back pain, seizure, CVA, palpatations, mental health, musculoskeletal)? @ -[facility] Differential Dyspnea: Coronary syndrome, arrhythmia, tamponade, asthma, COPD, pulmonary embolism, pneumonia, pneumothorax, pulmonary effusion, anaphylaxis, diabetic ketoacidosis, flailed chest, pulmonary contusion, diaphragmatic rupture, anemia, neuromuscular this is not meant to be an all-inclusive list. EKG interpreted by me (3pts min.). @ -As above X-rays interpreted by me (1pt min.). @ -Chest x-ray shows no acute process CT interpreted by me (1pt min.). @ -CTA shows no acute process U/S interpreted by me (1pt. min.). @ -None done What testing was considered but not performed or refused? (CT, X-rays, U/S, labs)? Why? @ -None What meds were considered but not given or refused? Why? @ -None Did you discuss the management of the patient with other professionals (professionals i.e. , PA, PUBLIC HEALTH STAFF NURSE, lab, RT, psych nurse, long term care social worker, forming yardage control operator, teacher, student liaison officer, business case analyst)? Give summary @ -Spoke with Dr. Caceres who accepts admission Was smoking cessation discussed for >3mins.? @ -No Was critical care preformed (if so, how long)? @ -No Were there social determinants of health that impacted care today? How? (Homelessness, low income, unemployed, alcoholism, drug addiction, transportation, low edu. Level, literacy, decrease access to med. care, senior care, rehab)? @ -No Was there de-escalation of care discussed even if they declined (Discuss DNR or withdrawal of care, Hospice)? DNR status @ -No What co-morbidities impacted this encounter? (DM, HTN, Smoking, COPD, CAD, Cancer, CVA, ARF, Chemo, Hep., AIDS, mental health diagnosis, sleep apnea, morbid obesity)? @ -None Was patient admitted / discharged? Hospital course, mention meds given and route, prescriptions, significant lab abnormalities, going to OR and other pertinent info. @ -29-year-old female with history of asthma presenting with chief complaint of dyspnea. She had a mild cough that started yesterday. History and physical examination are conducted. Patient is given Solu-Medrol 125 mg and 3 DuoNeb breathing treatments. Patient tested negative for COVID earlier urgent care today, testing not repeated. D-dimer elevated at 0.79, however negative CTA of the chest. On reassessment patient reports continued tightness of the chest and difficulty breathing. Wheezing has somewhat improved but is still present. Patient will be admitted for asthma exacerbation. She is given 1 g magnesium sulfate. She is agreeable with this plan. I discussed this case with my attending Dr. Liu. Undiagnosed new problem with uncertain prognosis? @ -No Drug Therapy requiring intensive monitoring for toxicity (Heparin, Nitro, Insulin, Cardizem)? @ -No Were any procedures done? @ -No Diagnosis/symptom? @ -Asthma exacerbation Acute, or Chronic, or Acute on Chronic? @ -Acute Uncomplicated (without systemic symptoms) or Complicated (systemic symptoms)? @ -Complicated Side effects of treatment? @ -No Exacerbation, Progression, or Severe Exacerbation? @ -Exacerbation Poses a threat to life or bodily function? How? (Chest pain, USA, DC, pneumonia, PE, COPD, DKA, ARF, appy, cholecystitis, CVA, Diverticulitis, Homicidal, Suicidal, threat to staff... and all critical care pts) @ -Yes - Lab Data Result diagrams: 02/17/24 22:07 02/17/24 22:07 Lab Results 02/17/24 02/17/24 02/17/24 Range/Units 22:07 22:07 22:07 WBC 17.2 H (3.8-10.6) k/uL RBC 4.54 (3.80-5.40) m/uL Hgb 13.4 (11.4-16.0) gm/dL Hct 40.4 (34.0-46.0) % MCV 89.1 (80.0-100.0) fL MCH 29.5 (25.0-35.0) pg MCHC 33.1 (31.0-37.0) g/dL RDW 11.8 (11.5-15.5) % Plt Count 336 (150-450) k/uL MPV 7.0 Neutrophils % 95 % Lymphocytes % 3 % Monocytes % 1 % Eosinophils % 0 % Basophils % 0 % Neutrophils # 16.3 H (1.3-7.7) k/uL Lymphocytes # 0.5 L (1.0-4.8) k/uL Monocytes # 0.2 (0-1.0) k/uL Eosinophils # 0.1 (0-0.7) k/uL Basophils # 0.0 (0-0.2) k/uL PT 10.2 (10.0-12.5) sec INR 0.9 (<1.2) APTT 23.2 (22.0-30.0) sec D-Dimer 0.79 H (<0.60) mg/L FEU Sodium 135 L (137-145) mmol/L Potassium 4.0 (3.5-5.1) mmol/L Chloride 107 (98-107) mmol/L Carbon Dioxide 19 L (22-30) mmol/L Anion Gap 9 mmol/L BUN 8 (7-17) mg/dL Creatinine 0.55 (0.52-1.04) mg/dL Est GFR (CKD-EPI)AfAm >90 (>60 ml/min/1.73 sqM) Est GFR (CKD-EPI)NonAf >90 (>60 ml/min/1.73 sqM) Glucose 142 H (74-99) mg/dL Calcium 9.6 (8.4-10.2) mg/dL Total Bilirubin 0.9 (0.2-1.3) mg/dL AST 23 (14-36) U/L ALT 18 (4-34) U/L Alkaline Phosphatase 81 (38-126) U/L Troponin I (0.000-0.034) ng/mL Total Protein 7.2 (6.3-8.2) g/dL Albumin 4.2 (3.5-5.0) g/dL 02/17/24 Range/Units 22:07 WBC (3.8-10.6) k/uL RBC (3.80-5.40) m/uL Hgb (11.4-16.0) gm/dL Hct (34.0-46.0) % MCV (80.0-100.0) fL MCH (25.0-35.0) pg MCHC (31.0-37.0) g/dL RDW (11.5-15.5) % Plt Count (150-450) k/uL MPV Neutrophils % % Lymphocytes % % Monocytes % % Eosinophils % % Basophils % % Neutrophils # (1.3-7.7) k/uL Lymphocytes # (1.0-4.8) k/uL Monocytes # (0-1.0) k/uL Eosinophils # (0-0.7) k/uL Basophils # (0-0.2) k/uL PT (10.0-12.5) sec INR (<1.2) APTT (22.0-30.0) sec D-Dimer (<0.60) mg/L FEU Sodium (137-145) mmol/L Potassium (3.5-5.1) mmol/L Chloride (98-107) mmol/L Carbon Dioxide (22-30) mmol/L Anion Gap mmol/L BUN (7-17) mg/dL Creatinine (0.52-1.04) mg/dL Est GFR (CKD-EPI)AfAm (>60 ml/min/1.73 sqM) Est GFR (CKD-EPI)NonAf (>60 ml/min/1.73 sqM) Glucose (74-99) mg/dL Calcium (8.4-10.2) mg/dL Total Bilirubin (0.2-1.3) mg/dL AST (14-36) U/L ALT (4-34) U/L Alkaline Phosphatase (38-126) U/L Troponin I <0.012 (0.000-0.034) ng/mL Total Protein (6.3-8.2) g/dL Albumin (3.5-5.0) g/dL Disposition Clinical Impression: Asthma exacerbation Disposition: ADMITTED IP TO THIS HOSP Condition: Fair Referrals: None,Stated [Primary Care Provider] - 1-2 days Time of Disposition: 00:50
[2024-02-18] MEDS ORDERED: NALOXONE 0.4 MG/ML 1 ML VIAL IV PRN (00:53)
[2024-02-18] MEDS ORDERED: ACETAMINOPHEN TAB 325 MG TAB PO PRN (00:53)
[2024-02-18] MEDS ORDERED: IBUPROFEN 400 MG TAB PO PRN (00:53)
[2024-02-18] MEDS: MAGNESIUM SULFATE-D5W PMX 1 GM in DEXTROSE/WATER 1 100ML.BAG IVPB ONE (01:12)
--- NOTE | 2024-02-18 02:23 | P.HPIM ---
History of Present Illness H&P Date: 02/18/24 Chief Complaint: Shortness of breath Patient is a 29-year-old female with intermittent asthma presenting to the ED with shortness of breath. The patient started experiencing shortness of breath today morning when she woke up. She also mentions of coughing with thick yellow phlegm production as well as fever and chills. She took 8 breathing treatments at home throughout the day. But that did not help her which led her to an urgent care where she again received more breathing treatments after which she went home. But her symptoms did not improve and she came to the ED. She mentions of having similar episodes back in 2007 and 2009, but she states that they were not as severe as this one. While coughing she also experiences some back pain and epigastric pain. She mentions having diarrhea a couple years ago following which she had a colonoscopy but all the tests came back negative. Some dietary changes like restricting oily and spicy foods helped with her symptoms which she continues even today. Denies hemoptysis, chest pain, abdominal pain, nausea, vomiting, dizziness, rashes. ED workup revealed WBC 17.2, D-dimer 0.79. Chest x-ray did not show any a bnormalities and chest CTA did not show pulmonary embolism. She was treated with Tylenol, ibuprofen, DuoNeb, Solu-Medrol and 0.9 normal saline. Vitals: T 99F, P 122 bpm, RR 40, BP 139/84, O2 sat 97% on room air ED documentation reviewed. Review of systems: Pertinent positives and negatives as discussed in HPI, a complete review of systems was performed and all other systems are negative. PMH: Hyperlipidemia FMH: Liver cancer, lung cancer, skin cancer, CHF Allergies: Cat and dog Social history: Tobacco: Never smoker Alcohol: Occasional Recreational drugs: Occasional Gummies Travel: No recent travel history Sick contacts: None Physical examination: Vital signs reviewed General: Mild distress, appears at stated age, overweight Derm: no unusual rashes/lesions, warm Head: atraumatic, normocephalic, symmetric Eyes: EOMI, anicteric sclera ENT: Nose and ears atraumatic Mouth: no lip lesion, mucus membranes moist Cardiovascular: S1S2 reg, no murmur, no peripheral edema Lungs: Wheezing bilaterally, no accessory muscle use Abdominal: soft, nontender to palpation, no guarding Ext: muscle strength 5 out of 5 in all 4 extremities grossly, no gross muscle atrophy, no contractures, Neuro: CN II-XI grossly intact, no gross focal neuro deficits Psych: Alert, oriented, appropriate affect Assessment/Plan: Patient is a 29-year-old female with intermittent asthma presenting with shortness of breath. Case was discussed with the ED provider and admission was excepted for asthma exacerbation. #. Acute asthma exacerbation Continue with DuoNebs RT QID and Q2H PRN prednisone 60 mg daily D-dimer 0.79 Chest CTA did not show pulmonary embolism Consult pulmonology supplemental oxygen as needed, currently on room air #. SIRS criteria without obvious source P 122 bpm, WBC 17.2, RR 40 Chest x-ray did not show any abnormalities Viral respiratory panel pending Continue acetaminophen 650 mg p.o. every 6 hours as needed and ibuprofen 4 mg p.o. every 6 hours as needed Monitor CBC #. History of anxiety/ADHD Continue Adderall 30 mg p.o. daily #. control Continue Brad 1 tablet p.o. daily F: None E: Replete as required N: Regular diet A: Ambulatory DVT prophylaxis: Lovenox 40 mg SQ daily The patient is admitted with an anticipated less than 2 midnight stay for evaluation of shortness of breath CODE STATUS: Full code Discussed with: Patient Anticipated discharge place: Home Past Medical History Past Medical History: Asthma Additional Past Medical History / Comment(s): constipation History of Any Multi-Drug Resistant Organisms: None Reported Additional Past Surgical History / Comment(s): wisdom teeth Past Psychological History: No Psychological Hx Reported Smoking Status: Never smoker Past Alcohol Use History: None Reported Past Drug Use History: None Reported Medications and Allergies Home Medications Medication Instructions Recorded Confirmed Type Dextroamphetamine/Amphetamine 30 mg PO DAILY 07/24/15 11/07/20 History [Adderall] Brad 1 tab PO DAILY 11/02/20 11/07/20 History Allergies Allergy/AdvReac Type Severity Reaction Status Date / Time No Known Allergies Allergy Verified 02/17/24 21:29 Physical Exam Vitals: Vital Signs Temp Pulse Resp BP Pulse Ox 02/18/24 01:36 98.2 F 02/18/24 01:14 123 H 24 147/88 97 02/17/24 23:40 104 H 02/17/24 23:27 109 H 02/17/24 22:12 105 H 02/17/24 21:44 117 H 02/17/24 21:26 99 F 122 H 40 H 139/84 97 Intake and Output 02/17/24 02/17/24 02/18/24 14:59 22:59 06:59 Other: Weight 78.925 kg Results CBC & Chem 7: 02/17/24 22:07 02/17/24 22:07 Labs: Abnormal Lab Results - Last 24 Hours (Table) 02/17/24 02/17/24 02/17/24 Range/Units 22:07 22:07 22:07 WBC 17.2 H (3.8-10.6) k/uL Neutrophils # 16.3 H (1.3-7.7) k/uL Lymphocytes # 0.5 L (1.0-4.8) k/uL D-Dimer 0.79 H (<0.60) mg/L FEU Sodium 135 L (137-145) mmol/L Carbon Dioxide 19 L (22-30) mmol/L Glucose 142 H (74-99) mg/dL Thrombosis Risk Factor Assmnt - Choose All That Apply Each Factor Represents 1 point: Medical pt on bed rest, Obesity (BMI >25), Oral contraceptives or hormone replacement therapy Thrombosis Risk Factor Assessment Total Risk Factor Score: 3 Thrombosis Risk Factor Assessment Level: Moderate Risk Assessment and Plan Assessment: I have seen and evaluated the patient today. I Discussed the case with the resident and agree with the resident's findings I edited the assessment and plan as necessary as documented in the resident's note.
[2024-02-18] MEDS: IPRATROPIUM-ALBUTEROL 3 ML NEB INHALATION PRN (03:17)
[2024-02-18] MEDS: methylPREDNISolone SOD SUCCI 125 MG/2 ML VIAL IV STA (03:32)
[2024-02-18] MEDS: WATER IVPB STA (04:09)
[2024-02-18] MEDS: DEXTROSE 5% IVPB STA (04:09)
[2024-02-18] MEDS: MAGNESIUM SULFATE IVPB STA (04:09)
--- NOTE | 2024-02-18 05:22 | P.CNPUL ---
History of Present Illness Consult date: 02/18/24 Requesting physician: Chong Roberts Reason for consult: asthma Chief complaint: Shortness of breath, chest tightness, wheezing History of present illness: Patient is a 29-year-old white female with past medical history significant for asthma, seasonal allergies. She presents the emergency department late last night with complaints of 24 to 48 hours of worsening shortness of breath, wheezing, chest tightness. She does have a history of asthma which is managed by her PCP in [place]. She has a nebulizer that she utilizes while at home with albuterol and also has an as needed albuterol rescue inhaler. Asthma is usually fairly well-controlled. She does have frequent exacerbations during "allergy season". Also, her asthma frequently flares up when sick with a cold. No recent hospitalizations for asthma exacerbation. She does not smoke or vape. Works at a [employer]. She does have dogs and cats which she is reportedly allergic to, and they do sleep with her at night. She states that Saturday, she first noticed some increased nasal congestion and drainage that was yellow in c olor. Throughout the day on Saturday she became short of breath. She was wheezing. She has a persistent cough, with minimal yellow sputum production. No chest pain, but does mention epigastric discomfort associated with coughing fits. No fevers or chills. She took up to eight albuterol nebs while at home without much relief. Did go to a local urgent care center yesterday, they gave her another albuterol treatment. Also, tested her for COVID, which was reportedly negative. She denies sick contacts. Chest x-ray does not show any focal infiltrates or evidence of pneumonia. CBC: WBC count 17.2, hemoglobin 13.4, hematocrit 40.4, platelets 336. D-dimer was mildly elevated at 0.79, follow up chest CTA negative for filling defects consistent with pulmonary embolism. CMP: Sodium 135, potassium 4, chloride 107, serum bicarb 19, BUN 8, creatinine 0.55, glucose 142. LFTs unremarkable. Troponin less than 0.012. EKG: Sinus tachycardia, 114 bpm, no obvious acute ischemic changes. Patient is currently resting comfortably on room air. There is some wheezing with auscultation. No accessory muscle use. Treatments have been initiated in the emergency department. Review of Systems Constitutional: Reports fatigue, Denies chills, Denies fever, Denies night sweats, Denies weight gain, Denies weight loss Ears, nose, mouth and throat: Reports nasal congestion, Reports nasal discharge, Denies headache, Denies post-nasal drip, Denies sinus pain, Denies sinus pressure, Denies sore throat Cardiovascular: Denies chest pain, Denies leg edema, Denies palpitations, Denies syncope Respiratory: Reports as per HPI Gastrointestinal: Denies abdominal pain, Denies constipation, Denies diarrhea, Denies nausea, Denies vomiting Genitourinary: Denies dysuria Musculoskeletal: Denies limitation of motion Integumentary: Denies rash Neurological: Denies seizures Psychiatric: Denies anxiety, Denies depression Allergic/Immunologic: Reports seasonal allergies Past Medical History Past Medical History: Asthma Additional Past Medical History / Comment(s): constipation History of Any Multi-Drug Resistant Organisms: None Reported Additional Past Surgical History / Comment(s): wisdom teeth Past Psychological History: No Psychological Hx Reported Smoking Status: Never smoker Past Alcohol Use History: None Reported Past Drug Use History: None Reported Medications and Allergies Home Medications Medication Instructions Recorded Confirmed Type Dextroamphetamine/Amphetamine 30 mg PO DAILY 07/24/15 11/07/20 History [Adderall] Brad 1 tab PO DAILY 11/02/20 11/07/20 History Allergies Allergy/AdvReac Type Severity Reaction Status Date / Time No Known Allergies Allergy Verified 02/17/24 21:29 Physical Exam Vitals: Vital Signs Temp Pulse Resp BP Pulse Ox 02/18/24 04:16 115 H 28 H 151/92 95 02/18/24 03:55 90 L 02/18/24 03:29 123 H 02/18/24 03:17 110 H 02/18/24 03:06 118 H 95 02/18/24 01:36 98.2 F 02/18/24 01:14 123 H 24 147/88 97 02/17/24 23:40 104 H 02/17/24 23:27 109 H 02/17/24 22:12 105 H 02/17/24 21:44 117 H 02/17/24 21:26 99 F 122 H 40 H 139/84 97 Intake and Output 02/17/24 02/17/24 02/18/24 14:59 22:59 06:59 Other: Weight 78.925 kg GENERAL EXAM: Alert, 29-year-old white female, appearing stated age, comfortable in no apparent distress. HEAD: Normocephalic and atraumatic EYES: Normal reaction of pupils, equal size. NOSE: Clear with pink turbinates. THROAT: No erythema or exudates. NECK: No masses, no JVD. CHEST: No chest wall deformity. LUNGS: Equal air entry with expiratory wheezing heard bilaterally and throughout. No crackles, rhonchi, focal dullness. On room air. No conversational dyspnea or accessory muscle use.. CVS: S1 and S2 normal with no audible murmur, regular rhythm. No extra heart sounds ABDOMEN: No hepatosplenomegaly, active bowel sounds, no guarding or rigidity. SPINE: No scoliosis or deformity SKIN: No rashes CENTRAL NERVOUS SYSTEM: No focal deficits, tone is normal in all 4 extremities. EXTREMITIES: There is no peripheral edema, clubbing, or cyanosis. Peripheral pulses are intact. Results - Laboratory Findings CBC and BMP: 02/17/24 22:07 02/17/24 22:07 PT/INR, D-dimer PT 10.2 sec (10.0-12.5) 02/17/24 22:07 INR 0.9 (<1.2) 02/17/24 22:07 D-Dimer 0.79 mg/L FEU (<0.60) H 02/17/24 22:07 Abnormal lab findings: Abnormal Labs 02/17/24 02/17/24 02/17/24 22:07 22:07 22:07 WBC 17.2 H Neutrophils # 16.3 H Lymphocytes # 0.5 L D-Dimer 0.79 H Sodium 135 L Carbon Dioxide 19 L Glucose 142 H - Diagnostic Findings Chest x-ray: image reviewed CT scan - chest: image reviewed Assessment and Plan Assessment: Acute asthma exacerbation Acute dyspnea, secondary to above Sinus tachycardia Acute leukocytosis History of attention deficit hyperactivity disorder Plan: Patient's medications, labs, imaging reviewed No focal infiltrates or evidence of pneumonia Currently on room air Started on a combination of bronchodilators, budesonide inhalation, and p rednisone burst taper Viral panel pending Anticipate 24 to 48-hour hospitalization We will continue to follow I have personally seen and examined the patient, performed the documentation and the assessment and plan as written. Number of minutes spent on the visit:20 Time with Patient: Greater than 30
[2024-02-18] MEDS: BUDESONIDE 1 MG/2 ML NEBU INHALATION SCH (08:10)
[2024-02-18] MEDS: IPRATROPIUM-ALBUTEROL 3 ML NEB INHALATION SCH (08:10)
[2024-02-18] MEDS: LARIN PO SCH (08:36)
[2024-02-18] MEDS: predniSONE 20 MG TAB PO SCH (08:40)
[2024-02-18] MEDS: ENOXAPARIN 40 MG/0.4 ML SYRINGE SQ SCH (08:42)
[2024-02-18] MEDS: PANTOPRAZOLE 40 MG TABLET PO SCH (10:08)
[2024-02-18] MEDS: methylPREDNISolone SOD SUCCI 125 MG/2 ML VIAL IV SCH (12:09)
[2024-02-18] MEDS: SYMBICORT 160-4.5 MCG INHALER INHALATION SCH (19:21)
[2024-02-18] MEDS: MONTELUKAST 10 MG TAB PO SCH (21:01)
[2024-02-19 08:32] VITALS: BP 137/89; RESP 18; TEMP 98.2
--- NOTE | 2024-02-19 10:53 | P.DS ---
Providers Date of admission: 02/18/24 00:37 Attending physician: Ambrose Cid MD Consults: 02/18/24 02:23 Consult Physician Routine Consulting Provider: Frances Ramirez Consult Reason/Comments: Asthma exacerbation Do you want consulting provider notified?: Yes, Notify in am Primary care physician: Stated None Hospital Course: Discharge Diagnosis: Acute on chronic asthma exacerbation SIRS criteria secondary to respiratory distress from the above History of anxiety and ADHD Hospital Course: Patient is a 29-year-old female with intermittent asthma presenting to the ED with shortness of breath. ED workup revealed WBC 17.2, D-dimer 0.79. Chest x- ray did not show any abnormalities and chest CTA did not show pulmonary embolism. She was treated with Tylenol, ibuprofen, DuoNeb, Solu-Medrol and 0.9 normal saline. Pulmonology was following the patient. At the time of discharge patient reported that her breathing was better. She is satting well on room air. She is cleared by pulmonology. Patient will be discharged home on prednisone 50 mg for 5 more days. Patient was also started on Singulair 10 mg p.o. at bedtime and Symbicort 162 puffs twice daily by pulmonology. I also did refill patient's albuterol nebulizer medication. Patient deemed stable for discharge and instructed to follow-up with pulmonology Patient seen and examined at bedside.[] Vital signs reviewed and stable. General: [non toxic], [no distress], [appears at stated age] Derm: [warm], [dry] Head: [atraumatic], [normocephalic], [symmetric] Eyes: [EOMI], [no lid lag], [anicteric sclera] Mouth: [no lip lesion], [mucus membranes moist] Cardiovascular: [S1S2 reg], [no murmur], [positive posterior tibial pulse bilateral], Lungs: Mild wheezing bilaterally Abdominal: [soft], [ nontender to palpation], [no guarding], [no appreciable organomegaly] Ext: [no gross muscle atrophy], [no edema], [no contractures] Neuro: [ CN II-XI grossly intact], [no focal neuro deficits] Psych: [Alert], [oriented], [appropriate affect] A total of [33] minutes of time were spent preparing this complex discharge summary . Patient Condition at Discharge: Fair Plan - Discharge Summary Discharge Rx Participant: No New Discharge Prescriptions: New Montelukast [Singulair] 10 mg PO HS 30 Days #30 tab Albuterol Nebulized [Ventolin Nebulized (Accuneb)] 3 ml INHALATION Q6H PRN 30 Days #75 ml PRN Reason: Wheezing Brad 1 tab PO DAILY predniSONE 50 mg PO DAILY 5 Days #5 tab Budesonide-Formot 160-4.5 Mcg [Symbicort 160-4.5 Mcg Inhaler] 2 puff INHALATION RT-BID 30 Days #30 each Continue Cetirizine HCl [Zyrtec] 10 mg PO HS Dextroamphetamine/Amphetamine [Adderall Xr 30 mg Capsule] 30 mg PO DAILY Albuterol Sulfate [Albuterol Sulfate Hfa] 1 - 2 puff PO RT-Q4H PRN PRN Reason: Shortness Of Breath Fluticasone Propionate [Flonase Allergy Relief] 1 spray EA NOSTRIL HS PRN PRN Reason: Congestion Atorvastatin [Lipitor] 20 mg PO HS norethindrone-e.estradioL-iron [Aurovela 24 Fe 1 mg-20 Mcg Tab] 1 tab PO HS Discontinued predniSONE [Deltasone] 20 mg PO DIRECTED Discharge Medication List Albuterol Sulfate [Albuterol Sulfate Hfa] 1 - 2 puff PO RT-Q4H PRN 02/18/24 [History] Atorvastatin [Lipitor] 20 mg PO HS 02/18/24 [History] Cetirizine HCl [Zyrtec] 10 mg PO HS 02/18/24 [History] Dextroamphetamine/Amphetamine [Adderall Xr 30 mg Capsule] 30 mg PO DAILY 06/12 [History] Fluticasone Propionate [Flonase Allergy Relief] 1 spray EA NOSTRIL HS PRN 02/18/24 [History] norethindrone-e.estradioL-iron [Aurovela 24 Fe 1 mg-20 Mcg Tab] 1 tab PO HS 02/18/24 [History] Albuterol Nebulized [Ventolin Nebulized (Accuneb)] 3 ml INHALATION Q6H PRN 30 Days #75 ml 02/19/24 [Rx] Budesonide-Formot 160-4.5 Mcg [Symbicort 160-4.5 Mcg Inhaler] 2 puff INHALATION RT-BID 30 Days #30 each 02/19/24 [Rx] Brad 1 tab PO DAILY 02/19/24 [Rx] Montelukast [Singulair] 10 mg PO HS 30 Days #30 tab 02/19/24 [Rx] predniSONE 50 mg PO DAILY 5 Days #5 tab 02/19/24 [Rx] Follow up Appointment(s)/Referral(s): Frances Ramirez MD [STAFF PHYSICIAN] - 1 Week None,Stated [Primary Care Provider] - 1-2 days Discharge Disposition: HOME SELF-CARE
[2024-02-19 12:33] VITALS: PULSE 96
--- NOTE | 2024-02-19 15:19 | P.PN ---
Subjective Progress Note Date: 02/19/24 Principal diagnosis: Acute exacerbation of mild intermittent asthma Patient is a 29-year-old white female with past medical history significant for asthma, seasonal allergies. She presents the emergency department late last night with complaints of 24 to 48 hours of worsening shortness of breath, wheezing, chest tightness. She does have a history of asthma which is managed by her PCP in [place]. She has a nebulizer that she utilizes while at home with albuterol and also has an as needed albuterol rescue inhaler. Asthma is usually fairly well-controlled. She does have frequent exacerbations during "allergy season". Also, her asthma frequently flares up when sick with a cold. No recent hospitalizations for asthma exacerbation. She does not smoke or vape. Works at a [employer]. She does have dogs and cats which she is reportedly allergic to, and they do sleep with her at night. She states that Saturday, she first noticed some increased nasal congestion and drainage that was yellow in color. Throughout the day on Saturday she became short of breath. She was wheezing. She has a persistent cough, with minimal yellow sputum production. No chest pain, but does mention epigastric discomfort associated with coughing fits. No fevers or chills. She took up to eight albuterol nebs while at home without much relief. Did go to a local urgent care center yesterday, they gave her another albuterol treatment. Also, tested her for COVID, which was reported ly negative. She denies sick contacts. Chest x-ray does not show any focal infiltrates or evidence of pneumonia. CBC: WBC count 17.2, hemoglobin 13.4, hematocrit 40.4, platelets 336. D-dimer was mildly elevated at 0.79, follow up chest CTA negative for filling defects consistent with pulmonary embolism. CMP: Sodium 135, potassium 4, chloride 107, serum bicarb 19, BUN 8, creatinine 0.55, glucose 142. LFTs unremarkable. Troponin less than 0.012. EKG: Sinus tachycardia, 114 bpm, no obvious acute ischemic changes. Patient is currently resting comfortably on room air. There is some wheezing with auscultation. No accessory muscle use. Treatments have been initiated in the emergency depa rtment. Patient was seen today on 02/19/2024, feeling much better, breathing a lot easier, patient would like to go home, hence I am recommending that she goes home on prednisone burst and taper over 2 weeks, Solu-Medrol to be discontinued today, patient will go home also on albuterol, Symbicort, and on Singulair as well as Protonix. Patient to see me in the office in 1 week postdischarge. Antibiotics could be given for a few more days. Objective - Vital Signs Vital signs: Vital Signs Temp 98.2 F 02/19/24 08:00 Pulse 96 02/19/24 12:33 Resp 18 02/19/24 08:00 BP 137/89 02/19/24 08:00 Pulse Ox 97 02/19/24 08:00 FiO2 Intake & Output 02/18/24 02/19/24 02/19/24 18:59 06:59 18:59 Weight 78.925 kg Other: # Voids 3 - Exam GENERAL EXAM: Alert, 29-year-old white female, appearing stated age, comfortable in no apparent distress. HEAD: Normocephalic and atraumatic EYES: Normal reaction of pupils, equal size. NOSE: Clear with pink turbinates. THROAT: No erythema or exudates. NECK: No masses, no JVD. CHEST: No chest wall deformity. LUNGS: Clear bilaterally minimal wheezing on forced expiratory maneuver only. CVS: S1 and S2 normal with no audible murmur, regular rhythm. No extra heart sounds ABDOMEN: No hepatosplenomegaly, active bowel sounds, no guarding or rigidity. SKIN: No rashes CENTRAL NERVOUS SYSTEM: Alert oriented x 3 no focal deficit EXTREMITIES: No clubbing edema or cyanosis - Labs CBC & Chem 7: 02/17/24 22:07 02/17/24 22:07 Labs: Abnormal Lab Results - Last 24 Hours (Table) 02/18/24 Range/Units 03:20 Rhinovirus (PCR) DETECTED A (Not detected) Microbiology - Last 24 Hours (Table) 02/18/24 12:15 Gram Stain - Preliminary Sputum Assessment and Plan Assessment: Impression: Acute exacerbation of mild intermittent asthma Acute dyspnea, secondary to above Sinus tachycardia Acute leukocytosis History of attention deficit hyperactivity disorder Recommendation: Considering the patient is significantly improved I will transition the patient to prednisone orally and taper over 2 weeks starting at 40 mg daily Discharge the patient home on albuterol 2 puffs 4 times daily as needed Symbicort 160/4.52 puffs twice daily Singulair 10 mg daily Protonix 40 mg daily Antibiotics as per admitting physicians choice, would recommend either Zithromax or Ceftin. Patient to follow-up with me on outpatient basis for her asthma. Time with Patient: Less than 30
[2024-02-20] MEDS ORDERED: predniSONE 20 MG TAB PO SCH (09:00)
== END 2024-02-19 13:22 | disposition home or self-care (01) ==
LOC: EC 21:25 → 6NMEDSUR 02-18 00:37 → 1SOBS 02-18 12:39
PROVIDERS: ADMIT Internal Medicine; ATTEND Internal Medicine
CPT/HCPCS: 36415; 71046; 71275; 80053; 84484; 85025; 85379; 85610; 85730; 87070; 87205; 87496; 87498; 87502; 87529; 87634; 87635; 87798; 93005; 94640; 96361; 96365; 96366; 96372; 96375; 96376; 99285